=== PATIENT | male | born 1945 | race Caucasian/White ===

== ENCOUNTER → 2018-02-03 | Outpatient (CLI) | payer MEDICARE | LOC: M ONCR 10:03 | DX: C20 Malignant neoplasm of rectum (principal) | CPT/HCPCS: G0463 ==

== ENCOUNTER 2018-02-10 10:07 | Outpatient (RCR) | payer MEDICARE | END 2018-03-09 | LOC: M ONCR 10:07 | DX: C20 Malignant neoplasm of rectum (principal); Z88.2 Allergy status to sulfonamides | CPT/HCPCS: 77300 ==

== ENCOUNTER → 2018-03-02 | Outpatient (CLI) | payer MEDICARE ==
[2018-03-02 09:24] LABS: HEMATOCRIT 40.2 % (42.0-52.0); HEMOGLOBIN 13.2 g/dl (13.5-17.5); MEAN CORPUSCULAR HEMOGLOBIN 25.7 pg (27.0-33.0); MEAN CORPUSCULAR HGB CONC 32.8 g/dl (32.0-36.5); MEAN CORPUSCULAR VOLUME 78.4 fl (80.0-96.0); PLATELET COUNT, AUTOMATED 191 10^3/uL (150-450); RED BLOOD COUNT 5.13 10^6/uL (4.30-6.10); RED CELL DISTRIBUTION WIDTH 15.2 % (11.5-14.5); WHITE BLOOD COUNT 7.5 10^3/uL (4.0-10.0)
== END ==
LOC: M LAB 08:54
DX: C20 Malignant neoplasm of rectum (principal)
CPT/HCPCS: 85027

== ENCOUNTER 2018-03-10 09:05 | Outpatient (RCR) | payer MEDICARE | END 2018-04-09 | LOC: M ONCR 09:05 | DX: C20 Malignant neoplasm of rectum (principal) | CPT/HCPCS: 77336 ==